=== PATIENT | male | born 1980 | race African-American/Black ===

== ENCOUNTER 2024-11-16 13:57 | Inpatient (IN) | payer OTHER ==
[2024-11-16] MEDS: HYDROmorphone 1 MG/ML 1 ML SYRINGE IVP STA ×4 (15:39→18:39)
[2024-11-16] MEDS: ONDANSETRON 4 MG/2 ML VIAL IVP STA (15:39)
[2024-11-16] MEDS: SODIUM CHLORIDE 0.9% 1,000 ML IV ONE (15:42)
[2024-11-16] MEDS: diphenhydrAMINE 50 MG/ML 1 ML VIAL IVP STA ×2 (15:47→16:53)
[2024-11-16] MEDS: methylPREDNISolone SOD SUCCI 125 MG/2 ML VIAL IVP ONE (15:49)
[2024-11-16] MEDS: FAMOTIDINE 20 MG/2 ML VIAL IV STA (15:49)
[2024-11-16 15:56] LABS: Basophils # (A) 0.03 10*3/uL (0.00-0.10); Basophils % (A) 0.1 %; Eosinophils # (A) 0.13 10*3/uL (0.04-0.35); Eosinophils % (A) 0.6 %; HCT 28.2 % (39.6-50.0); HGB 8.7 g/dL (13.0-17.0); Lymphocytes # (A) 2.55 10*3/uL (0.90-5.00); Lymphocytes % (A) 11.5 %; MCH 22.1 pg (27.0-32.0); MCHC 30.9 g/dL (32.0-37.0); MCV 71.8 fL (80.0-97.0); Mean Platelet Volume 8.6 fL (9.5-12.2); Monocytes # (A) 1.26 10*3/uL (0.20-1.00); Monocytes % (A) 5.7 %; Neutrophils # (A) 18.04 10*3/uL (1.80-7.70); Neutrophils % (A) 81.6 %; Platelet Count 688 10*3/uL (140-440); RBC 3.93 10*6/uL (4.40-5.60); RDW 17.8 % (11.5-14.5); WBC 22.13 10*3/uL (4.50-10.00)
[2024-11-16 16:10] LABS: ALT 24 U/L (4-49); AST 26 U/L (17-59); African American GFR (CKD) >90 (>60 ml/min/1.73 sqM); Albumin 3.8 g/dL (3.5-5.0); Alkaline Phosphatase 79 U/L (38-126); Anion Gap 7 mmol/L; Blood Urea Nitrogen 13 mg/dL (9-20); Calcium 9.1 mg/dL (8.4-10.2); Carbon Dioxide 27 mmol/L (22-30); Chloride 105 mmol/L (98-107); Glucose 99 mg/dL (74-99); Lipase 42 U/L (23-300); Magnesium 2.3 mg/dL (1.6-2.3); Non-African American GFR(CKD) >90 (>60 ml/min/1.73 sqM); Potassium 3.7 mmol/L (3.5-5.1); Sodium 139 mmol/L (137-145); Total Bilirubin 0.5 mg/dL (0.2-1.3); Total Protein 6.4 g/dL (6.3-8.2)
[2024-11-16 16:29] LABS: Appearance,Urine Clear (Clear); Bilirubin,Urine Negative (Negative); Blood,Urine Negative (Negative); Color,Urine Light Yellow; Glucose,Urine (UA) Negative (Negative); Ketones,Urine Negative (Negative); Leukocyte Esterase,Urine Negative (Negative); Nitrite,Urine Negative (Negative); Protein,Urine Negative (Negative)
--- NOTE | 2024-11-16 16:37 | CT ---
EXAMINATION TYPE: CT abdomen pelvis w con DATE OF EXAM: 11/16/2024 4:28 PM COMPARISON: None CLINICAL INDICATION: Male, 44 years old with history of pain; Pt states having abd pain with rectal b leeding TECHNIQUE: Axial CT abdomen pelvis w con;Sagittal and coronal reformats were created on a separate w orkstation. Contrast used:100ml mL of Isovue 300 with IV Contrast, (none if empty) Oral contrast used: without Oral Contrast (none if empty) CT DLP: 1375.6 mGycm, Automated exposure control for dose reduction was used. FINDINGS: LOWER CHEST: Multifocal groundglass opacities throughout the lungs. ABDOMEN LIVER: Unremarkable GALLBLADDER AND BILE DUCTS: Gallbladder is surgically absent with mild intrahepatic and extra hepatic biliary dilatation likely physiologic and a postcholecystectomy change. No evidence of choledocholit hiasis. PANCREAS: Unremarkable. SPLEEN: Unremarkable. ADRENAL GLANDS: Unremarkable. KIDNEYS AND URETERS: No evidence of hydronephrosis or obstructing renal calculus. The ureters are unr emarkable. Simple appearing right renal 35 mm cyst. No follow-up recommended. PELVIS BLADDER: No evidence for wall thickening or mass given limitations of exam. REPRODUCTIVE: Unremarkable. ABDOMEN & PELVIS STOMACH AND BOWEL: No evidence for wall thickening or gastrointestinal hemorrhage No evidence of dayami l obstruction. Colonic diverticula present. Moderate amount of stool throughout the colon. PERITONEUM/RETROPERITONEUM: No evidence of pneumoperitoneum or free fluid. VASCULATURE: No evidence of aortic aneurysm. MUSCULOSKELETAL: No acute osseous abnormalities LYMPH NODES: No gross evidence for lymphadenopathy. SOFT TISSUE/ABDOMINAL WALL: Fat-containing umbilical hernia. IMPRESSION: 1. Scattered groundglass opacities in the lungs, correlate for atypical infection. 2. No evidence for acute abdominal process. 3. No evidence for gastrointestinal hemorrhage. 4. Right simple appearing renal cysts. No follow-up recommended. [facility], , 11/16/2024 4:35 PM
[2024-11-16] MEDS ORDERED: KETOROLAC 15 MG/ML 1 ML VIAL IVP PRN (17:40)
[2024-11-16] MEDS: PIPERACILLIN-TAZOBACTAM 3.375 GM in SODIUM CHLORIDE 0.9% 100 ML IVPB STA (18:12)
[2024-11-16] MEDS: HYDROmorphone 1 MG/ML 1 ML SYRINGE IVP PRN (18:17)
[2024-11-16 18:20] LABS: Partial Thromboplastin Time 22.1 sec (22.0-30.0); Prothrombin Time 11.1 sec (10.0-12.5)
[2024-11-16] MEDS ORDERED: VANCOMYCIN IV PER PHARMACY 1 EACH MISC MISCELLANE PRN (18:25)
[2024-11-16] MEDS: ORPHENADRINE 30 MG/ML 2 ML VIAL IVP STA (18:38)
[2024-11-16] MEDS ORDERED: NALOXONE 0.4 MG/ML 1 ML VIAL IV PRN (18:57)
--- NOTE | 2024-11-16 18:57 | ED ---
General Adult HPI - General Chief complaint: GI Bleed Stated complaint: abd pain rectal bleeding Time Seen by Provider: 11/16/24 14:24 Source: patient Mode of arrival: ambulatory Limitations: no limitations - History of Present Illness Initial comments: 44-year-old male with history of ulcerative colitis presenting with chief complaint of abdominal pain. Patient had sudden onset severe abdominal pain starting today. Located on the left side of the abdomen. He also admits to rectal bleeding. He states that he normally has a little bit of blood in his stool but today it is more like half a cup worth. He is also having nausea and vomiting. No fever. No chest pain or difficulty breathing. No cough. No urinary symptoms. [place]. - Related Data Allergies Allergy/AdvReac Type Severity Reaction Status Date / Time No Known Allergies Allergy Verified 11/16/24 14:01 Review of Systems ROS Statement: Those systems with pertinent positive or pertinent negative responses have been documented in the HPI. ROS Other: All systems not noted in ROS Statement are negative. Past Medical History Past Medical History: Thyroid Disorder Additional Past Medical History / Comment(s): Colitis, Facto 5. History of Any Multi-Drug Resistant Organisms: None Reported Past Surgical History: Appendectomy, Cholecystectomy Additional Past Surgical History / Comment(s): Sigmoidectopy Past Psychological History: No Psychological Hx Reported Smoking Status: Current every day smoker Past Alcohol Use History: None Reported Past Drug Use History: None Reported General Exam Limitations: no limitations General appearance: alert, in distress (in pain) Head exam: Present: atraumatic, normocephalic, normal inspection Eye exam: Present: normal appearance, EOMI Neck exam: Present: normal inspection. Absent: meningismus Respiratory exam: Present: normal lung sounds bilaterally. Absent: respiratory distress, wheezes, rales, rhonchi, stridor Cardiovascular Exam: Present: regular rate, normal rhythm, normal heart sounds. Absent: systolic murmur, diastolic murmur, rubs, gallop, clicks GI/Abdominal exam: Present: soft, tenderness. Absent: distended, guarding, rebound, rigid Rectal exam: Present: normal inspection, normal rectal tone, heme (-) stool Neurological exam: Present: alert, oriented X3 Psychiatric exam: Present: normal affect, normal mood Skin exam: Present: warm, dry, normal color Course Vital Signs 11/16/24 11/16/24 13:58 18:21 Temperature 98.5 F Pulse Rate 76 90 Respiratory 20 18 Rate Blood Pressure 159/93 131/101 O2 Sat by Pulse 98 96 Oximetry Medical Decision Making - Medical Decision Making Was pt. sent in by a medical professional or institution (SAYDA David, EQUITY SALES ASSISTANT, urgent care, hospital, or senior care...) When possible be specific @ -No Did you speak to anyone other than the patient for history (EMS, parent, family, police, friend...)? What history was obtained from this source @ -No Did you review nursing and triage notes (agree or disagree)? Why? @ -I reviewed and agree with nursing and triage notes Were old charts reviewed (outside hosp., previous admission, EMS record, old EKG, old radiological studies, urgent care reports/EKG's, senior care records)? Report findings @ -No old charts were reviewed Differential Diagnosis (chest pain, altered mental status, abdominal pain women, abdominal pain men, vaginal bleeding, weakness, fever, dyspnea, syncope, headache, dizziness, GI bleed, back pain, seizure, CVA, palpatations, mental health, musculoskeletal)? @ -MDM Differential Abdominal Pain Men: Appendicitis, cholecystitis, diverticulosis, ischemic bowel, pancreatitis, hepatitis, UTI, gastroenteritis, AAA, incarcerated hernia, bowel obstruction, constipation, inflammatory bowel, hepatitis, peptic ulcer disease, splenic infarction, perforated viscus, testicular torsion... This is not meant to be an all-inclusive list EKG interpreted by me (3pts min.). @ -As above X-rays interpreted by me (1pt min.). @ -None done CT interpreted by me (1pt min.). @ -CT shows scattered groundglass opacities in the lungs, correlate for atypical infection. No evidence for acute abdominal process. No evidence for gastrointestinal hemorrhage. Right simple appearing renal cysts U/S interpreted by me (1pt. min.). @ -None done What testing was considered but not performed or refused? (CT, X-rays, U/S, labs)? Why? @ -None What meds were considered but not given or refused? Why? @ -None Did you discuss the management of the patient with other professionals (professionals i.e. SAYDA David, EQUITY SALES ASSISTANT, lab, RT, psych nurse, oncology social work, trout farmer, teacher, navigating officer, watch caser)? Give summary @ -Spoke with general surgeon on-call Dr. Monzon who advises GI consult Spoke with [facility] provider on-call Dr. Azevedo who accepts admission Was smoking cessation discussed for >3mins.? @ -No Was critical care preformed (if so, how long)? @ -No Were there social determinants of health that impacted care today? How? (Homelessness, low income, unemployed, alcoholism, drug addiction, transport ation, low edu. Level, literacy, decrease access to med. care, retirement, rehab)? @ -No Was there de-escalation of care discussed even if they declined (Discuss DNR or withdrawal of care, Hospice)? DNR status @ -No What co-morbidities impacted this encounter? (DM, HTN, Smoking, COPD, CAD, Cancer, CVA, ARF, Chemo, Hep., AIDS, mental health diagnosis, sleep apnea, morbid obesity)? @ -Ulcerative colitis Was patient admitted / discharged? Hospital course, mention meds given and route, prescriptions, significant lab abnormalities, going to OR and other pertinent info. @ -44-year-old male presenting with chief complaint of abdominal pain. Also complains of rectal bleeding nausea and vomiting. History and physical examination are conducted. Lab work shows white count of 22.13. Hemoglobin 8.7, no previous records on file but patient states that his hemoglobin is normally around 13. CMP, lipase, coags, UA are unremarkable. Lactic acid is WNL. Stool occult is negative. Normal rectal exam. CT shows no acute abdominal process. After multiple rounds of pain medication patient is still in 10 out of 10 pain. Patient received Solu-Medrol as premedication prior to his CT. He is also started on vancomycin and Zosyn. He will be admitted for intractable abdominal pain. He is agreeable with this plan. I discussed this case with my attending Dr. Vera. Undiagnosed new problem with uncertain prognosis? @ -No Drug Therapy requiring intensive monitoring for toxicity (Heparin, Nitro, Insulin, Cardizem)? @ -No Were any procedures done? @ -No Diagnosis/symptom? @ -Intractable abdominal pain Acute, or Chronic, or Acute on Chronic? @ -Acute Uncomplicated (without systemic symptoms) or Complicated (systemic symptoms)? @ -Complicated Side effects of treatment? @ -No Exacerbation, Progression, or Severe Exacerbation? @ -No Poses a threat to life or bodily function? How? (Chest pain, USA, AR, pneumonia, PE, COPD, DKA, ARF, appy, cholecystitis, CVA, Diverticulitis, Homicidal, Suicidal, threat to staff... and all critical care pts) @ -Potentially - Lab Data Result diagrams: 11/16/24 15:37 11/16/24 15:37 Lab Results 11/16/24 11/16/24 11/16/24 Range/Units 15:37 15:37 15:37 WBC 22.13 H (4.50-10.00) 10*3/uL RBC 3.93 L (4.40-5.60) 10*6/uL Hgb 8.7 L (13.0-17.0) g/dL Hct 28.2 L (39.6-50.0) % MCV 71.8 L (80.0-97.0) fL MCH 22.1 L (27.0-32.0) pg MCHC 30.9 L (32.0-37.0) g/dL Plt Count 688 H (140-440) 10*3/uL MPV 8.6 L (9.5-12.2) fL Immature Gran % (Auto) 0.5 % Neutrophils % 81.6 % Lymphocytes % 11.5 % Monocytes % 5.7 % Eosinophils % 0.6 % Basophils % 0.1 % Immature Gran # 0.12 H (0.00-0.04) 10*3/uL Neutrophils # 18.04 H (1.80-7.70) 10*3/uL Lymphocytes # 2.55 (0.90-5.00) 10*3/uL Monocytes # 1.26 H (0.20-1.00) 10*3/uL Eosinophils # 0.13 (0.04-0.35) 10*3/uL Basophils # 0.03 (0.00-0.10) 10*3/uL PT 11.1 (10.0-12.5) sec INR 1.0 (<1.2) APTT 22.1 (22.0-30.0) sec Sodium 139 (137-145) mmol/L Potassium 3.7 (3.5-5.1) mmol/L Chloride 105 (98-107) mmol/L Carbon Dioxide 27 (22-30) mmol/L Anion Gap 7 mmol/L BUN 13 (9-20) mg/dL Creatinine 0.69 (0.66-1.25) mg/dL Est GFR (CKD-EPI)AfAm >90 (>60 ml/min/1.73 sqM) Est GFR (CKD-EPI)NonAf >90 (>60 ml/min/1.73 sqM) Glucose 99 (74-99) mg/dL Plasma Lactic Acid Gurwinder (0.7-2.0) mmol/L Calcium 9.1 (8.4-10.2) mg/dL Magnesium 2.3 (1.6-2.3) mg/dL Total Bilirubin 0.5 (0.2-1.3) mg/dL AST 26 (17-59) U/L ALT 24 (4-49) U/L Alkaline Phosphatase 79 (38-126) U/L Total Protein 6.4 (6.3-8.2) g/dL Albumin 3.8 (3.5-5.0) g/dL Lipase 42 (23-300) U/L Urine Color Urine Appearance (Clear) Urine pH (5.0-8.0) Ur Specific [place] (1.001-1.035) Urine Protein (Negative) Urine Glucose (UA) (Negative) Urine Ketones (Negative) Urine Blood (Negative) Urine Nitrite (Negative) Urine Bilirubin (Negative) Urine Urobilinogen (<2.0) mg/dL Ur Leukocyte Esterase (Negative) Stool Occult Blood (Negative) 11/16/24 11/16/24 11/16/24 Range/Units 15:37 16:11 17:03 WBC (4.50-10.00) 10*3/uL RBC (4.40-5.60) 10*6/uL Hgb (13.0-17.0) g/dL Hct (39.6-50.0) % MCV (80.0-97.0) fL MCH (27.0-32.0) pg MCHC (32.0-37.0) g/dL Plt Count (140-440) 10*3/uL MPV (9.5-12.2) fL Immature Gran % (Auto) % Neutrophils % % Lymphocytes % % Monocytes % % Eosinophils % % Basophils % % Immature Gran # (0.00-0.04) 10*3/uL Neutrophils # (1.80-7.70) 10*3/uL Lymphocytes # (0.90-5.00) 10*3/uL Monocytes # (0.20-1.00) 10*3/uL Eosinophils # (0.04-0.35) 10*3/uL Basophils # (0.00-0.10) 10*3/uL PT (10.0-12.5) sec INR (<1.2) APTT (22.0-30.0) sec Sodium (137-145) mmol/L Potassium (3.5-5.1) mmol/L Chloride (98-107) mmol/L Carbon Dioxide (22-30) mmol/L Anion Gap mmol/L BUN (9-20) mg/dL Creatinine (0.66-1.25) mg/dL Est GFR (CKD-EPI)AfAm (>60 ml/min/1.73 sqM) Est GFR (CKD-EPI)NonAf (>60 ml/min/1.73 sqM) Glucose (74-99) mg/dL Plasma Lactic Acid Gurwinder 1.5 (0.7-2.0) mmol/L Calcium (8.4-10.2) mg/dL Magnesium (1.6-2.3) mg/dL Total Bilirubin (0.2-1.3) mg/dL AST (17-59) U/L ALT (4-49) U/L Alkaline Phosphatase (38-126) U/L Total Protein (6.3-8.2) g/dL Albumin (3.5-5.0) g/dL Lipase (23-300) U/L Urine Color Light Yellow Urine Appearance Clear (Clear) Urine pH 7.0 (5.0-8.0) Ur Specific [place] 1.020 (1.001-1.035) Urine Protein Negative (Negative) Urine Glucose (UA) Negative (Negative) Urine Ketones Negative (Negative) Urine Blood Negative (Negative) Urine Nitrite Negative (Negative) Urine Bilirubin Negative (Negative) Urine Urobilinogen 2.0 (<2.0) mg/dL Ur Leukocyte Esterase Negative (Negative) Stool Occult Blood Negative (Negative) Disposition Clinical Impression: Intractable abdominal pain Disposition: ADMITTED IP TO THIS [facility] Condition: Serious Referrals: None,Stated [Primary Care Provider] - 1-2 days Time of Disposition: 18:57
[2024-11-16] MEDS: SODIUM CHLORIDE 0.9% 1,000 ML IV SCH (19:05)
[2024-11-16] MEDS: VANCOMYCIN 2,500 MG in SODIUM CHLORIDE 0.9% 500 ML 500 ML IVPB ONE (19:06)
[2024-11-17] MEDS: VANCOMYCIN 2,000 MG in SODIUM CHLORIDE 0.9% 500 ML 500 ML IVPB SCH (04:04)
[2024-11-17] MEDS: ONDANSETRON 4 MG/2 ML VIAL IVP PRN (05:30)
[2024-11-17 07:13] VITALS: BP 118/83; PULSE 68; RESP 19; TEMP 97.6
[2024-11-17 08:28] LABS: ALT 25 U/L (10-49); AST 26 U/L (14-35); Albumin/Globulin Ratio 1.67 Ratio (1.60-3.17); Alkaline Phosphatase 91 U/L (41-126); Calcium 8.6 mg/dL (8.7-10.3); Carbon Dioxide 23.8 mmol/L (21.6-31.8); Chloride 103 mmol/L (96-109); Globulin 2.4 g/dL (1.6-3.3); Glucose 118 mg/dL (70-110); Sodium 137 mmol/L (135-145); Total Bilirubin <0.2 mg/dL (0.3-1.2); Total Protein 6.4 g/dL (6.2-8.2)
[2024-11-17 08:33] LABS: Basophils # (A) 0.02 X 10*3/uL (0.00-0.10); Basophils % (A) 0.2 %; Eosinophils # (A) 0 X 10*3/uL (0.04-0.35); Eosinophils % (A) 0 %; HCT 29.4 % (39.6-50.0); HGB 8.3 g/dL (13.0-17.0); Lymphocytes # (A) 0.93 X 10*3/uL (0.90-5.00); Lymphocytes % (A) 7.2 %; MCH 21.4 pg (27.0-32.0); MCHC 28.2 g/dL (32.0-37.0); Mean Platelet Volume 8.8 FL (9.5-12.2); Monocytes # (A) 0.25 X 10*3/uL (0.20-1.00); Monocytes % (A) 1.9 %; NRBC Per 100 WBC 0 X 10*3/uL (0.00-0.01); Neutrophils # (A) 11.72 X 10*3/uL (1.80-7.70); Neutrophils % (A) 90.2 %; Platelet Count 593 X 10*3/uL (140-440); RBC 3.87 X 10*6/uL (4.40-5.60); RDW 18.5 % (11.5-14.5); WBC 12.99 X 10*3/uL (4.50-10.00)
[2024-11-17 14:57] LABS: % Iron Saturation 3.08 (15.00-50.00)
--- NOTE | 2024-11-19 21:33 | P.HPIM ---
History of Present Illness H&P Date: 11/17/24 This is a 44 year old male admitted in observation for intractible abdominal pain. Abdominal pelvis CT reveals scattered groundglass opacities in the lungs, correlate for atypical infection; no evidence for acute abdominal process, no evidence of GI hemorrhage, right simple appearing renal cyst. Patient had WBC of 22, lipase was normal. UA negative. He left against medical advice prior to being evaluated by admitted provider. He left at 11/17/2024 at 819. The impression and plan of care has been dictated by Eboni Smith, Nurse Practitioner as directed. Dr. Laura MD I have performed a history and physical examination and medical decision making of this patient, discussed the same with the dictator, and agree with the dictators assessment and plan as written, documented as a scribe. Based on total visit time, I have performed more than 50% of this visit. Past Medical History Past Medical History: Thyroid Disorder Additional Past Medical History / Comment(s): Colitis, Facto 5. History of Any Multi-Drug Resistant Organisms: None Reported Past Surgical History: Appendectomy, Cholecystectomy Additional Past Surgical History / Comment(s): Sigmoidectopy Past Psychological History: No Psychological Hx Reported Smoking Status: Current every day smoker Past Alcohol Use History: None Reported Past Drug Use History: None Reported Medications and Allergies Home Medications Medication Instructions Recorded Confirmed Type Unable To Assess [Unable to Assess] 11/16/24 11/16/24 History Allergies Allergy/AdvReac Type Severity Reaction Status Date / Time No Known Allergies Allergy Verified 11/16/24 19:23 Results CBC & Chem 7: 11/17/24 05:21 11/17/24 05:21 Labs: Microbiology - Last 24 Hours (Table) 11/16/24 17:03 Blood Culture - Preliminary Blood
--- NOTE | 2024-11-19 21:33 | P.DS ---
Providers Date of admission: 11/16/24 18:58 Attending physician: Aidan Azevedo MD Consults: 11/16/24 18:57 Consult Physician Urgent Consulting Provider: Jodi Blank Consult Reason/Comments: rectal bleeding, history of ulcerative colitis Do you want consulting provider notified?: Yes, Notify in am Primary care physician: Stated None Hospital Course: This is a 44 year old male admitted in observation for intractible abdominal pain. Abdominal pelvis CT reveals scattered groundglass opacities in the lungs, correlate for atypical infection; no evidence for acute abdominal process, no evidence of GI hemorrhage, right simple appearing renal cyst. Patient had WBC of 22, lipase was normal. UA negative. He left against medical advice prior to being evaluated by admitted provider. He left at 11/17/2024 at 819. The impression and plan of care has been dictated by Eboni Smith Nurse Practitioner as directed. Dr. Laura MD I have performed a history and physical examination and medical decision making of this patient, discussed the same with the dictator, and agree with the dictators assessment and plan as written, documented as a scribe. Based on total visit time, I have performed more than 50% of this visit. Plan - Discharge Summary New Discharge Prescriptions: No Action Unable To Assess [Unable to Assess] Discharge Medication List Unable To Assess [Unable to Assess] 11/16/24 [History] Follow up Appointment(s)/Referral(s): None,Stated [Primary Care Provider] - 1-2 days Discharge Disposition: LEFT AGAINST MEDICAL ADVICE
== END 2024-11-17 08:17 | disposition left against medical advice (07) | DRG 387 ==
LOC: EC 13:57 → 5NMEDONC 18:58 → 1SOBS 11-17 00:27
PROVIDERS: ADMIT Internal Medicine; ATTEND Internal Medicine
DX: K51.911 Ulcerative colitis, unspecified with rectal bleeding (principal); F17.200 Nicotine dependence, unspecified, uncomplicated; Z53.21 Procedure and treatment not carried out due to patient leaving prior to being seen by health care provider; N28.1 Cyst of kidney, acquired
CPT/HCPCS: 36415; 74177; 80053; 81003; 82272; 82728; 83540; 83550; 83605; 83690; 83735; 85025; 85610; 85730; 87040; 93005; 96361; 96365; 96366; 96367; 96375; 96376; 99285